=== PATIENT | female | born 1965 | race Caucasian/White ===

== ENCOUNTER 2016-09-29 05:34 | Day surgery (SDC) | payer OTHER ==
[~2016-09-29] VITALS: Ht 154.9 cm; Wt 56.1 kg
--- NOTE | ~2016-09-29 | S ---
[facility] [address] [place] [address] SURGICAL PATH RPT PROCEDURE Name: FRANCHESCA AGGARWAL Room #: DEP [facility].#: [id number] Admission: 09/29/16 Date of : 69 Discharge: 09/29/16 Report #: [id number] Path Case #: [id number] PATHOLOGY REPORT COLLECTION DATE: 09/29/2016 RECEIVED DATE: 09/29/2016 SUBMITTING PHYS: Dr. Lion Mcfarland OTHER PHYS: Dr. Des Billings SPECIMEN(S) RECEIVED: A.Wide resection melanoma right posterior shoulder B.Right axillary sentinel lymph node #1 C.Right axillary sentinel lymph node #2 D.Right axillary sentinel lymph node #3 * * * * * * * * * * * * FINAL DIAGNOSIS: A. Skin, right posterior shoulder, wide resection: - Previous biopsy site changes present (please see comment). - No residual malignant melanoma present (please see synoptic report). - Margins of resection widely free of biopsy type changes, closest anterior margin is 0.6 cm away. B. Lymph node, (one), right axillary sentinel lymph node #1, biopsy: - METASTATIC MELANOMA MEASURING 5 MM IN GREATEST DIMENSION. C. Lymph node, (one), right axillary sentinel lymph node #2, biopsy: - METASTATIC MELANOMA MEASURING 1 MM IN GREATEST DIMENSION D. Lymph node, (one), right axillary sentinel lymph node #3, biopsy: - METASTATIC MELANOMA MEASURING 1 MM IN GREATEST DIMENSION SYNOPTIC CANCER STAGING REPORT Specimen Site: Skin structure Procedure: Re-excision Primary Tumor Site: Skin of upper limb and shoulder: right posterior shoulder Specimen Laterality: Right Macroscopic Satellite Nodule(s): Not identified Macroscopic Pigmentation: Not identified Histologic Type: Superficial spreading melanoma Tumor Size: Indeterminate: no residual tumor Maximum Tumor Thickness: 0.91 mm Anatomic Level: II (Melanoma present in but does not fill and expand papillary dermis) Ulceration: Not identified [address] [address] SURGICAL PATH RPT PROCEDURE Name: FRANCHESCA AGGARWAL [id number] Admission: 09/29/16 Date of : 69 Discharge: 09/29/16 Report #: [id number] Path Case #: [id number] Peripheral Margins: Uninvolved by invasive melanoma Distance of invasive melanoma from closest peripheral margin: 6mm Margin location(s): anterior Deep Margin: Uninvolved by invasive melanoma Distance of invasive melanoma from margin: 6mm Mitotic Rate: None identified: 1/ mm2 Microsatellitosis: Not identified Lymph-Vascular Invasion: Not identified Perineural Invasion: Not Identified Tumor-Infiltrating Lymphocytes: Present, brisk Tumor Regression: Not identified Growth Phase: Indeterminate: no residual tumor in the current resection Lymph Nodes: Lymph nodes are present in specimen Number of sentinel nodes examined: 3 Total number of nodes examined (sentinel and nonsentinel): 3 Number of lymph nodes with metastases: 3 Extranodal tumor extension - Not identified Size of largest metastatic focus: 5 (mm) (for sentinel node) Location of metastatic tumor (for sentinel node) - Subcapsular Primary Tumor (pT): pT1b: Melanoma 1.0 mm or less in thickness with ulceration and/or 1 or more mitoses/sq mm Regional Lymph Nodes (pN): pN2a: Metastasis in 2 to 3 regional nodes or intra-lymphatic regional metastasis without hortencia metastasis- Clinically occult metastasis (micrometastasis) Number of lymph nodes identified: 3 Number of nodes containing metastases: 3 Matted Nodes: Not identified Distant Metastasis (pM): Not applicable COMMENT: There is no residual malignant melanoma present. The previous biopsy [id number], collected on 08/30/2016 showed a malignant melanoma of superficial spreading type (Johnnie's level II and Breslow's thickness 0.91 mm). It was staged as pT1b NX MX at that time. Subsequent to [address] [address] SURGICAL PATH RPT PROCEDURE Name: FRANCHESCA AGGARWAL Room #: [place] [facility] [place]#: [id number] Admission: 09/29/16 Date of : 69 Discharge: 09/29/16 Report #: [id number] Path Case #: [id number] the examination of the sentinel lymph nodes, the specimen remains staged at pT1b N2a MX. Melan-A immunohistochemical stain performed on block B1- metastatic melanoma measuring 5 mm S100 immunohistochemical stain performed on block B1- metastatic melanoma measuring 5 mm Melan-A immunohistochemical stain performed on block C1- metastatic melanoma measuring 1mm S100 immunohistochemical stain performed on block C1- metastatic melanoma measuring 1mm Melan-A immunohistochemical stain performed on block D1- few cells present in subcapsular area measuring 1 mm S100 immunohistochemical stain performed on block D1- few cells present in subcapsular area measuring 1 mm [facility]: Dr. Tiffany Randall. (Parts B, C and D only) PATHOLOGIST: Jeanette Snyder M.D. REPORT ELECTRONICALLY SIGNED BY: Jeanette Snyder M.D. DATE/TIME: 10/03/2016 15:18 * * * * * * * * * * * * GROSS PATHOLOGY: A. The specimen is received in formalin labeled "Franchesca Jasen, wide resection melanoma right posterior shoulder, long suture lateral, short suture anterior corner". Received is an oriented ellipse of skin measuring 4.8 x 1.7 x 1.1 cm in greatest dimensions with a short suture placed along one edge designating this as the anterior corner, which will further be designated as the 12:00 margin, and a long suture placed at one tip designating this as the lateral aspect, which will further be designated as the 3:00 margin. The specimen is inked as follows: 12 to 3:00-blue, 3 to 9:00-black and 9 to 12:00-yellow. The epidermal surface displays a linear well-healed pale pennington scar measuring 1.7 cm in length by 0.2 cm in diameter. The scar is located 0.6 cm from the 12:00 margin, 1.8 cm from the 3:00 margin, 0.8 cm from the 6:00 margin, and 1.2 cm from the 9:00 margin. Sectioning reveals white-pennington to yellow-pennington cut surfaces throughout with no grossly apparent abnormal pigmentation. The specimen is submitted representatively as follows: A1 longitudinal section through 3:00 and 9:00 tip A2-A5 entire scar submitted from 3:00 to 9:00 aspects. A gross photograph is taken. B. The specimen is received in formalin labeled "Franchesca Aggarwal right axillary sentinel lymph node #1, count 259". Received is a segment of yellow-pennington lobulated tissue measuring 1.7 x 1.4 x 0.8 cm in greatest dimensions. Dissection of the specimen reveals a single lymph node measuring 1.5 cm in maximum dimensions. The specimen is submitted entirely in cassette B1. [address] [address] SURGICAL PATH RPT PROCEDURE Name: FRANCHESCA AGGARWAL MARCIAL Room #: [place] [facility] [place]..#: [id number] Admission: 09/29/16 Date of : 69 Discharge: 09/29/16 Report #: [id number] Path Case #: [id number] Immunohistochemical stains are ordered. C. The specimen is received in formalin labeled "Franchesca Aggarwal right axillary sentinel lymph node #2, count 186". Received is a segment of yellow-pennington lobulated tissue measuring 2.4 x 1.5 x 1.2 cm in greatest dimensions. Dissection and palpation of the specimen reveals a single lymph node measuring 0.7 cm in maximum dimensions. The lymph node is submitted entirely in cassette C1. Immunohistochemical stains are ordered. D. The specimen is received in formalin labeled "Franchesca Aggarwal right axillary sentinel lymph node #3, count 3466". Received is a segment of yellow-pennington lobulated tissue measuring 1.6 x 0.9 x 0.8 cm in greatest dimensions. Dissection of the specimen reveals a single lymph node measuring 1.2 cm in maximum dimensions. The specimen is submitted entirely in cassette D1. Immunohistochemical stains are ordered. ([facility]; 10/02/2016) CLINICAL HISTORY: Melanoma right posterior shoulder INITIAL CPT CODE(S): A; 65679 B; 43072, 99583, 46710 C; 66109, 33256, 09932 D; 11527, 88522, 91179 Professional services performed by [facility] at [facility] [address], [place] [address] Technical services performed by [facility] at [address] [place] [address], [address], [place] [address]. [facility] [address] [place] [address] PHONE: [phone] DIRECTOR: Arash Montemayor M.D. * * * END OF REPORT * * *
--- NOTE | ~2016-09-29 | O ---
[facility] [place] [address] OPERATIVE REPORT Name: AMISHA LOVE Room #: 150-4 [facility]..#: [id number] Admission: 09/29/16 Attend Phys: Lion Mcfarland MD Discharge: Date of : 69 Report #: [id number] THIS REPORT FOR: //name// CC: Luís Downs MD PREOPERATIVE DIAGNOSIS: Malignant melanoma, right posterior shoulder, recent excisional biopsy. POSTOPERATIVE DIAGNOSIS: Malignant melanoma, right posterior shoulder, recent excisional biopsy, final pathology pending. OPERATION: 1. Lymphatic mapping. 2. Wide resection of melanoma, right posterior shoulder with skin flap mobilization and layered closure. 3. Right axillary sentinel lymph node resection times 3. SURGEON: Lion Mcfarland MD SPECIAL EDUCATION ASSISTANT: Medical student, MS Michelle3. SECOND PAI GOW MANAGER: Medical student, MS Rojelio3. ANESTHESIA: General. The patient was taken to nuclear medicine and the radiologist injected technetium sulfur colloid into the right posterior shoulder region where the melanoma had been excised as per protocol. Lymphoscintigraphy demonstrated perhaps 2 hot spot in the axilla, which were marked by the radiologist. The patient was brought to the operating room for a general anesthetic. Lymphatic mapping was performed using the gamma probe and we confirmed the presence of a right axillary hot spot with a 10-second count of 1681. Next, the right breast, right axilla, right shoulder, and right arm were widely prepped with ChloraPrep solution. Sterile drapes were applied. The patient was placed in a modified lateral decubitus position with appropriate padding and protection and without hyperextension of the arm. Using a sterile marking pen and a ruler, I mapped out an elliptical incision measuring 2 cm x 6 cm, which would give at least 1 cm margins around the thin melanoma scar on the right posterior shoulder. A full thickness skin resection was performed including the underlying fascia. Care was taken to avoid injury to the underlying nerves. The specimen was marked with sutures for orientation purposes and then was submitted to pathology. The skin flaps were mobilized anteriorly and posteriorly in order to free up enough skin for primary closure without excessive tension. Hemostasis was excellent. The incision was closed in layers using interrupted 2-0 Vicryl for the dermis [address] [address] OPERATIVE REPORT Name: AMISHA LOVE MARCIAL Room #: 150-4 [facility]..#: [id number] Admission: 09/29/16 Attend Phys: Lion Mcfarland MD Discharge: Date of : 69 Report #: [id number] and running 4-0 PDS for the subcuticular layer. Next, a transverse incision was made in the right axilla near the hot spot marked by the radiologist. Dissection was carried down into the axilla with care being taken to avoid injury to the neurovascular structures. We found 3 sentinel nodes, which were each excised, controlling the blood and lymphatic supply using the Harmonic scalpel. Madison node #1 had a 10-second count of 259. Madison node #2 had a 10-second count of 186. Madison node #3 had a 10-second count of 3466. All 3 were submitted separately to pathology. Palpation revealed no other suspicious nodes. There were no other radioactive nodes to be found. The postresection bed count was 75, which was well below 10% of the highest node. Hemostasis was excellent. The sponge, instrument, and needle counts were reported as correct. The incision was closed using running 3-0 Vicryl for the deep layer and running 4-0 PDS for the subcuticular layer. Sterile dressings were applied and the patient was taken to recovery in satisfactory condition. Estimated blood loss was less than 10 mL. By: [id number] Lion Mcfarland MD /nt
[~2016-09-29 05:34] MED LIST: MAXALT10 MG PO; PROAIR HFA8.5 GM INH
[2016-09-29 09:42] VITALS: BP 117/86
[2016-09-29 09:48] LABS: HEMATOCRIT 42.2 % (37.0-47.0); MCH 29.2 pg (26.0-34.0); MCHC 33.3 g/dL (28.0-37.0); MCV 87.6 fL (80.0-100.0); RBC 4.81 mil/uL (4.20-5.00); RDW 12.4 % (10.5-14.5); WBC 5.7 thou/uL (4.0-11.0)
[2016-09-29 09:56] LABS: CALCIUM 8.5 mg/dL (8.5-10.1); CREATININE 0.9 mg/dL (0.6-1.0)
[2016-09-29 10:01] LABS: ALBUMIN 3.9 g/dL (3.4-5.0); TOTAL BILIRUBIN 0.4 mg/dL (<0.1-1.0); TOTAL PROTEIN 7.4 g/dL (6.4-8.2)
== END 2016-09-29 14:50 | disposition home or self-care (01) ==
LOC: TBA 05:34 → OR 05:34 → TBA 05:35 → OR 13:43
PROVIDERS: Specialist
DX: C77.3 Secondary and unspecified malignant neoplasm of axilla and upper limb lymph nodes (principal); M79.9 Soft tissue disorder, unspecified; K21.9 Gastro-esophageal reflux disease without esophagitis; G43.909 Migraine, unspecified, not intractable, without status migrainosus; Z98.890 Other specified postprocedural states
CPT/HCPCS: 50010; 50101; 50386; 50403; 52190; 56524; 56526; 56805; 62110; 62900; 70005

== ENCOUNTER → 2019-11-26 | Outpatient (CLI) | payer OTHER | LOC: CAT 13:14 | PROVIDERS: ATTEND Nurse Practitioner | DX: I25.10 Atherosclerotic heart disease of native coronary artery without angina pectoris (principal); E78.00 Pure hypercholesterolemia, unspecified ==